=== PATIENT | male | born 1960 | race Caucasian/White ===

== ENCOUNTER 2020-07-17 | Outpatient (REF) | payer OTHER, MEDICAID, SELFPAY ==
[2020-07-18 13:46] LABS: Creatinine Urine 178.68 mg/dL; Microalbum/Creatinine Ratio Ur 16.7 ug/mg cr
== END 2020-07-17 00:01 | disposition home or self-care (01) ==
LOC: HO.LNP
PROVIDERS: Visit Provider Family Medicine
DX: I10 Essential (primary) hypertension (principal)
CPT/HCPCS: 82043

== ENCOUNTER 2020-07-23 10:10 | Outpatient (REF) | payer OTHER, SELFPAY ==
[2020-07-23 14:05] LABS: Alanine Aminotransferase 21 U/L (0-40); Albumin Level 4.5 g/dL (3.5-5.0); Alkaline Phosphatase 67 U/L (39-117); Anion Gap 14 (12-20); Aspartate Amino Transferase 18 U/L (5-37); Bilirubin Total 0.4 mg/dL (0.0-1.0); Blood Urea Nitrogen 26 mg/dL (9-16); Calcium 9.8 mg/dL (8.4-10.2); Carbon Dioxide 27 mmol/L (22-29); Chloride 104 mmol/L (96-108); Cholesterol 140 mg/dL; Estimated Glomerular Filt Rate > 60; Glucose Fasting 85 mg/dL (60-99); HDL Cholesterol 44 mg/dL; LDL Cholesterol Calculated 71 mg/dl; Potassium 5.3 mmol/l (3.3-5.1); Sodium 140 mmol/L (135-145); Total Protein 7.4 g/dL (6.5-8.0); Triglycerides 125 mg/dL
== END 2020-07-23 10:11 | disposition home or self-care (01) ==
LOC: HO.WFDLDS 10:10
PROVIDERS: Visit Provider Family Medicine
DX: E11.69 Type 2 diabetes mellitus with other specified complication (principal); E66.9 Obesity, unspecified; I10 Essential (primary) hypertension; Z00.00 Encounter for general adult medical examination without abnormal findings; E78.5 Hyperlipidemia, unspecified
CPT/HCPCS: 80053; 80061

== ENCOUNTER 2021-05-03 11:13 | Outpatient (REF) | payer OTHER, SELFPAY ==
[2021-05-03 14:21] LABS: Alanine Aminotransferase 17 U/L (0-40); Albumin Level 4.2 g/dL (3.5-5.0); Alkaline Phosphatase 64 U/L (39-117); Anion Gap 12 (12-20); Aspartate Amino Transferase 25 U/L (5-37); Bilirubin Total 0.4 mg/dL (0.0-1.0); Blood Urea Nitrogen 31 mg/dL (9-16); Calcium 8.8 mg/dL (8.4-10.2); Carbon Dioxide 25 mmol/L (22-29); Chloride 103 mmol/L (96-108); Estimated Glomerular Filt Rate > 60; Glucose Fasting 107 mg/dL (60-99); Sodium 136 mmol/L (135-145); Total Protein 6.9 g/dL (6.5-8.0)
[2021-05-03 14:25] LABS: Glucose Urine UA NEG (NEG); Leukocyte Esterase Urine NEG (NEG); Nitrite Urine NEG (NEG); PH 5.5 (5.0-8.0); Specific Gravity - Urine >= 1.030 (1.005-1.025); Urine Blood TRACE (NEG); Urine Ketones NEG (NEG); Urine Protein TRACE MG/DL (NEG-TRACE)
[2021-05-03 14:29] LABS: Appearance Urine CLEAR; Color Urine YELLOW
[2021-05-03 14:39] LABS: Mucus Urine TRACE /LPF; RBC Urine 0-2 /HPF (0); Squamous Epithelial Cell Urine TRACE /LPF; WBC Urine 0-2 /HPF (0-4)
[2021-05-03 15:03] LABS: Creatinine Urine 105.33 mg/dL; Microalbum/Creatinine Ratio Ur 107.2 ug/mg cr
== END 2021-05-03 11:14 | disposition home or self-care (01) ==
LOC: HO.WFDLDS 11:13
PROVIDERS: Visit Provider Family Medicine
DX: Z00.00 Encounter for general adult medical examination without abnormal findings (principal); E11.9 Type 2 diabetes mellitus without complications; I10 Essential (primary) hypertension
CPT/HCPCS: 36415; 80053; 81001; 81003; 82043

== ENCOUNTER → 2021-10-07 08:29 | Outpatient (BNVA) | payer OTHER, SELFPAY | PROVIDERS: PCP Family Medicine; Visit Provider Nurse Practitioner Family | DX: M47.812 Spondylosis without myelopathy or radiculopathy, cervical region (principal); M25.561 Pain in right knee; M25.562 Pain in left knee; M25.50 Pain in unspecified joint; G89.29 Other chronic pain | CPT/HCPCS: 99202 ==

== ENCOUNTER 2022-01-10 11:28 | Outpatient (REF) | payer OTHER, SELFPAY ==
[2022-01-10 13:42] LABS: Uric Acid 6.7 mg/dL (3.4-7.0)
[2022-01-10 14:15] LABS: Erythrocyte Sedimentation Rate 30 MM/HR (0-15)
[2022-01-13 12:40] LABS: CRP High Sensitivity 7.6 mg/L
== END 2022-01-10 11:29 | disposition home or self-care (01) ==
LOC: HO.WFDLDS 11:28
PROVIDERS: Visit Provider Hospitalist
DX: M65.319 Trigger thumb, unspecified thumb (principal); M25.541 Pain in joints of right hand; M65.841 Other synovitis and tenosynovitis, right hand
CPT/HCPCS: 36415; 84550; 85652; 86141

== ENCOUNTER → 2022-01-21 13:26 | Outpatient (BNVA) | payer OTHER, SELFPAY | PROVIDERS: PCP Family Medicine; Visit Provider Orthopaedic Surgery | DX: M65.311 Trigger thumb, right thumb (principal); M65.331 Trigger finger, right middle finger; M65.332 Trigger finger, left middle finger; E11.9 Type 2 diabetes mellitus without complications | CPT/HCPCS: 99202 ==

== ENCOUNTER 2022-02-06 12:02 | Outpatient (REF) | payer OTHER, SELFPAY ==
[2022-02-06 13:32] LABS: MANUAL DIFF FLAG NO
[2022-02-06 13:43] LABS: Basophils Percent Auto 0.3 % (0-2); Eosinophils Absolute Auto 0.2 X10*3/uL (0.0-0.4); Eosinophils Percent Auto 1.7 % (0-4); Hematocrit 37.8 % (42.0-52.0); Hemoglobin 12.9 g/dl (14.0-18.0); Imm Gran Abs Auto 0.05 X10*3/uL (0.00-0.03); Imm Gran Pct Auto 0.5 % (0.0-0.4); Lymphocytes Absolute Auto 2.9 X10*3/uL (1.2-4.9); Lymphocytes Percent Auto 26.8 % (20-40); Mean Corpuscular HGB Conc 34.1 g/dl (31.0-36.0); Mean Corpuscular Hemoglobin 28.9 pg (27.0-33.0); Mean Corpuscular Volume 84.6 fL (80.0-98.0); Mean Platelet Volume 9.5 fL (9.4-12.4); Monocytes Absolute Auto 0.8 X10*3/uL (0.1-1.2); Monocytes Percent Auto 7.3 % (2-11); Neutrophils Absolute Auto 6.7 x10*3/uL (2.0-8.3); Neutrophils Percent Auto 63.4 % (45-73); Platelet Count 262 X10*3/uL (160-400); Red Blood Count 4.47 X10*6/uL (4.60-5.80); White Blood Count 10.6 X10*3/uL (4.8-10.8)
[2022-02-06 13:58] LABS: Alanine Aminotransferase 20 U/L (0-40); Albumin Level 4.4 g/dL (3.5-5.0); Alkaline Phosphatase 89 U/L (39-117); Anion Gap 15 (12-20); Aspartate Amino Transferase 18 U/L (5-37); Bilirubin Total 0.7 mg/dL (0.0-1.0); Blood Urea Nitrogen 8 mg/dL (9-16); Calcium 9.7 mg/dL (8.4-10.2); Carbon Dioxide 27 mmol/L (22-29); Chloride 102 mmol/L (96-108); Estimated Glomerular Filt Rate > 60; Glucose Fasting 128 mg/dL (60-99); Rheumatoid Factor < 15.0 IU/mL (<15.0); Sodium 139 mmol/L (135-145); Total Protein 7.2 g/dL (6.5-8.0)
[2022-02-08 14:32] LABS: CRP High Sensitivity 5.1 mg/L
[2022-02-12 00:27] LABS: Cyclic Citrullinated Peptide <16 UNITS
== END 2022-02-06 12:03 | disposition home or self-care (01) ==
LOC: HO.WFDLDS 12:02
PROVIDERS: Visit Provider Hospitalist
DX: Z00.00 Encounter for general adult medical examination without abnormal findings (principal); M79.641 Pain in right hand; M79.642 Pain in left hand; R70.0 Elevated erythrocyte sedimentation rate; R19.7 Diarrhea, unspecified; M25.50 Pain in unspecified joint
CPT/HCPCS: 36415; 80053; 85025; 86141; 86200; 86431

== ENCOUNTER → 2022-04-14 09:59 | Outpatient (BNVA) | payer OTHER, SELFPAY | PROVIDERS: PCP Hospitalist; Visit Provider Student in an Organized Health Care Education/Training Program | DX: M19.011 Primary osteoarthritis, right shoulder (principal); M19.012 Primary osteoarthritis, left shoulder; M65.331 Trigger finger, right middle finger; M17.0 Bilateral primary osteoarthritis of knee | CPT/HCPCS: 99202 ==

== ENCOUNTER 2023-04-17 09:42 | Outpatient (AMB) | payer OTHER, SELFPAY ==
[2023-04-17 09:53] VITALS: BP 124/78; PULSE 91; RESP 12; TEMP 36.3; O2SAT 99; BMI 39.7
--- NOTE | 2023-04-17 09:53 | MHC.PC.OV ---
Vital Signs 04/17/23 09:53 Height 5 ft 10 in Weight 276 lb 8 oz BMI 39.7 BP 124/78 Blood Pressure Location Rt brachial Position Sitting Respiration 12 Pulse 91 Pulse Source Pulse Oximeter Temp 97.4 F Temp Source Temporal Artery Scan Pulse Oximetry (%) 99 Oxygen Delivery Method Room Air Intake Visit Reasons: 3 month f/u Blood sugar Supervisor Inventory Merchandising Required: No Accompanied by: Self / Same As Patient Allergies morphine Allergy (Verified 04/17/23 10:27) Itchiness all over body Medication List - Last Reconciled 04/17/23 by Pawel Velez CNP blood sugar diagnostic (FreeStyle Lite Strips) DX: E11.9, test blood sugar 2 times a day, 90 days blood-glucose meter (FreeStyle Lite Meter kit) DX: E11.9, test blood sugar 2 times a day, duration 999 days celecoxib 200 mg PO DAILY cyclobenzaprine 10 mg PO BID PRN 3 months gabapentin 400 mg PO TID 90 days glipizide ER 10 mg PO BID lancets (FreeStyle Lancets) As directed lisinopril-hydrochlorothiazide 20-12.5 mg 1 tab PO DAILY metformin ER 500 mg PO BID 90 days metronidazole 0.75% 1 appl topical DAILY omeprazole 20 mg PO DAILY 3 months oxycodone 5 mg PO Q6H PRN 28 days Tobacco use date assessed: 11/04/22 Dental Screening Dental Screen Date: 04/17/23 Did you have a dental visit in the last 12 months?: No Did you have a dental problem in the last 6 months where you did not have access to dental care?: No Was dental information given to patient?: Yes HPI HPI Comments History of Present Illness Details 62-year-old male presents for diabetes follow-up. He is on glipizide and metformin which he notes he has been taking as prescribed. Previous A1c in October was 7.0%. He notes his last eye exam was 3-4 years ago. He is not currently being followed by ophthalmology. 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 He notes his list foot exam was several years ago. He declines podiatry referral. [facility] Medical History History of right shoulder fracture Osteoarthritis of knees, bilateral Osteoarthritis of shoulders, bilateral Surgical History History of artificial eye lens History of heart artery stent History of right knee surgery Hx of shoulder surgery Family History Father No problems noted. Mother Arthritis Brother Arthritis Social History Household Members: Friend(s) Housing: Apartment Alcohol intake: former Year quit: 2011 Patient Tobacco Use Status: Never used Tobacco e-Cigarette/Vaping Use: Never Used Second Hand Smoke Exposure: No service: No Current occupational status: disabled Current occupational exposures/hazards: No Cognitive needs: No Hearing needs: No Vision needs: Yes Questionnaire Thrive Questionnaire Date Thrive assessed: 11/04/22 CHRISTOPH-7 AMB Questionnaire CHRISTOPH-7 Date CHRISTOPH - 7 assessed: 11/04/22 Source: Developed by Drs. Juan Gonzales, Marcie Botello, Julio César Dunbar and colleagues, with an educational cristin from [employer]. Review of Systems Const Details: Const Denies chills, Denies fatigue, Denies fever(s), Denies headache(s) and Denies weakness ENT Denies dizziness and Denies headache(s) Card Denies chest pain, Denies lightheadedness, Denies dyspnea and Denies other (Palpitations) Resp Denies cough, Denies dyspnea, Denies wheezing and Denies other ( shortness of breath) GI Denies abdominal pain, Denies melena, Denies hematochezia, Denies change in bowel habits, Denies dyspepsia and Denies nausea Denies hematuria and Denies dysuria Musc Denies abnormal gait, Denies myalgias, Denies arthralgias, Denies numbness and Denies tingling Skin/Breast Denies rash, Denies unusual bruising and Denies wounds Neuro Denies abnormal gait, Denies dizziness, Denies headache(s), Denies memory loss, Denies numbness, Denies Sensory deficit (Neuro), Denies tingling and Denies weakness Psych Denies anxiety, Denies depression, Denies memory loss Endo Denies cold intolerance, Denies fatigue, Denies heat intolerance, Denies polydipsia and Denies polyuria Aller/Immun Denies wheezing Physical exam (Primary Care) Vital Signs: Last Vital Signs Temp 97.4 F 04/17/23 09:53 Pulse 91 04/17/23 09:53 Resp 12 04/17/23 09:53 BP 124/78 04/17/23 09:53 Pulse Ox 99 04/17/23 09:53 Oxygen Delivery Method Room Air 04/17/23 09:53 BMI result Body Mass Index 39.7 Tobacco/Smoking Status: Tobacco use Status Tobacco use date assessed 11/04/22 04/17/23 10:05 Patient Tobacco Use Status Never used Tobacco 04/17/23 10:05 e-Cigarette/Vaping Use Never Used 04/17/23 10:05 Thrive Assessment: Date of Thrive Assessment Date Thrive assessed 11/04/22 04/17/23 10:05 Const Other: General: no acute distress and well developed Nutritional Appearance: well nourished Orientation/consciousness: patient oriented x3 HENMT Head: Yes normocephalic and Yes atraumatic Eyes General: appearance normal, both eyes and all related structures Pupils: Equal, round and reactive pupils present EOM: EOMs intact bilaterally Resp Effort & Inspection: normal respiratory effort Auscultation: clear to auscultation bilaterally Cardio Rate: regular rate Rhythm: regular rhythm Heart sounds: S1 normal heart sound present, S2 normal heart sound present, no gallops, no murmurs and no rubs GI Palpation (GI): No Abdominal aortic bruit present, Soft to palpation, nontender, No hepatosplenomegaly present and No Rebound tenderness present Auscultation: normal bowel sounds General: Yes no CVA tenderness Back/Spine/Pelvis Back: no CVA tenderness Cervical Spine: cervical ROM normal and No Cervical spine tenderness Thoracic/Lumbar Spine: thoraco-lumbar ROM normal, No pain with thoraco-lumbar ROM, No thoracic spinal tenderness and No lumbar spinal tenderness Extrem General: Yes normal to inspection, No edema and No calf tenderness Skin General: warm and dry. Normal skin color. Normal skin turgor Lesions: no lesions Rashes: no rashes Trauma: no lacerations or abrasions Wounds: no wounds Nails: normal Neuro General: patient oriented x3, gait normal and no focal neuro deficit Cranial nerves: Yes Equal, round and reactive pupils present Cognition (Neuro): normal cognition Gait exam (Neuro): Normal gait present Sensory Exam: No Sensory deficit (Neuro) Psych Appearance: grossly normal Affect: normal affect Attitude: cooperative Thought process: Normal thought process present Results AMB Hemoglobin A1c AMB Hemoglobin A1c 5.8 % Last Edit by Danielle Haynes MA on 04/17/23 10:11 Results Reviewed Results Reviewed: Laboratory Last Values Hgb A1c (Clinic) 5.8 % (4.0-6.0) 04/17/23 10:10 Assessment and Plan Assessment & Plan (1) Type 2 diabetes mellitus without complications: Code(s): E11.9 - Type 2 diabetes mellitus without complications Plan: A1c today is 5.8%, within goal of less than 7.0% Previous A1c was 7.0% Continue to take metformin and glipizide as prescribed ADA diet and routine exercise encouraged Microalbumin/creatinine ratio ordered Referred to Ophthalmology for diabetic retinal exam Declines podiatry referral Follow-up with PCP in 3 months or return sooner with concerns or symptoms Verbalized understanding and agreed with treatment plan (2) Essential hypertension: Code(s): I10 - Essential (primary) hypertension Plan: Blood pressures control, 124/78, within goal of less than 130/80 Continue to take lisinopril-hydrochlorothiazide as prescribed Low-sodium diet encouraged Follow-up with PCP in 3 months Verbalized understanding and agreed with treatment plan. (3) Hyperlipidemia: Code(s): E78.5 - Hyperlipidemia, unspecified Plan: Previous LDL was 71 on 07/30/2022 LP ordered. Advised to fast for his 10-12 hours and get blood work done before next visit Routine exercise encouraged Advised to limit foods high in saturated fat and avoid foods high trans fat Follow-up with PCP in 3 months Verbalized understanding and agreed with treatment plan. Orders: Orders Lipid Panel Today E78.5 - Hyperlipidemia, unspecified Microalbumin, Random (w Creat) Today E11.9 - Type 2 diabetes mellitus without complications Referrals Ophthalmology Referral E11.9 - Type 2 diabetes mellitus without complications Coding Level of Care Code Est Pt Level 3 (98752) Diagnoses Type 2 diabetes mellitus without complications E11.9 Essential hypertension I10 Hyperlipidemia E78.5 Time Spent (min) 25
== END 2023-04-17 10:41 | disposition home or self-care (01) ==
PROVIDERS: PCP Hospitalist; Visit Provider Nurse Practitioner Family
DX: E11.9 Type 2 diabetes mellitus without complications (principal); I10 Essential (primary) hypertension; E78.5 Hyperlipidemia, unspecified
CPT/HCPCS: 99213

== ENCOUNTER 2023-07-31 10:14 | Outpatient (REF) | payer OTHER, SELFPAY ==
[2023-07-31 12:28] LABS: Cholesterol 226 mg/dL (<200); HDL Cholesterol 37 mg/dL (>40); LDL Cholesterol Calculated 154 mg/dL (<100); Microalbum/Creatinine Ratio Ur 14.9 ug/mg cr (<30); Triglycerides 175 mg/dL (<150)
== END 2023-07-31 10:15 | disposition home or self-care (01) ==
LOC: HO.WFDLDS 10:14
PROVIDERS: Visit Provider Nurse Practitioner Family
DX: E78.5 Hyperlipidemia, unspecified (principal); E11.9 Type 2 diabetes mellitus without complications
CPT/HCPCS: 36415; 80061; 82043; 82570

== ENCOUNTER 2023-09-30 09:34 | Outpatient (AMB) | payer OTHER, SELFPAY ==
--- NOTE | 2023-09-30 09:35 | A.OFFPC_ITS ---
Vital Signs 09/30/23 09:36 Height 5 ft 10 in Weight 263 lb 4 oz BMI 37.8 BP 134/76 Blood Pressure Location Rt brachial Position Sitting Respiration 13 Pulse 60 Pulse Source Pulse Oximeter Temp 97.6 F Temp Source Temporal Artery Scan Pulse Oximetry (%) 99 Oxygen Delivery Method Room Air Intake Visit Reasons: Transfer of care SV - HTN and DM Intake Note: Patient states that he fell 3 weeks ago and hurt his left shoulder and would like a xray ordered if possible.1 Family Development Extension Specialist Required: No Accompanied by: Self / Same As Patient Allergies morphine Allergy (Verified 09/30/23 10:14) Itchiness all over body Medication List - Last Reconciled 09/30/23 by CRISTINE HernándezP- blood sugar diagnostic (FreeStyle Lite Strips) DX: E11.9, test blood sugar 2 times a day, 90 days blood-glucose meter (FreeStyle Lite Meter kit) DX: E11.9, test blood sugar 2 times a day, duration 999 days celecoxib 200 mg PO DAILY cyclobenzaprine 10 mg PO BID PRN 3 months gabapentin 400 mg PO TID 90 days glipizide ER 10 mg PO BID lancets (FreeStyle Lancets) As directed lisinopril-hydrochlorothiazide 20-12.5 mg 1 tab PO DAILY metformin ER 500 mg PO BID 90 days metronidazole 0.75% 1 appl topical DAILY omeprazole 20 mg PO DAILY 3 months oxycodone 5 mg PO Q6H PRN 28 days sitagliptin phos-metformin 50-1,000 mg ER (Janumet XR) 1 tab PO QPM 90 days Tobacco use date assessed: 09/30/23 Fall risk assessment: 1 Fall in past year Last assessed Fall Risk: 09/30/23 Dental Screening Dental Screen Date: 09/30/23 Did you have a dental visit in the last 12 months?: No Did you have a dental problem in the last 6 months where you did not have access to dental care?: No Was dental information given to patient?: Patient declined HPI HPI Comments History of Present Illness0 Details 63-year-old male with hyperlipidemia, hy pertension, GERD, type 2 diabetes, PVD, coronary artery disease with DANIEL x1 chronic joint pain, rosacea, obesity Status post left lower extremity phlebectomy Specialist: Orthopedics at [facility] rheumatology [facility] pain management Vascular Dr Maik Hooks Health maintenance: Colonoscopy diabetic eye exam refer to Dr. De Jesus -- declined for now. HGB A1c 6.1% today Diabetic foot exam: Declines podiatry referral Here today w/ c/o pain after a fall 3 weeks ago at home landed on left side causing pain in L shoulder problems w/ L shoulder in the past, known torn labrum, no previous surgeries. pain is acute on chronic. to tx the pain at home, applying ice and heat w/o great relief Needs L shoulder replacement but holding off given his wt. Has had intentional wt loss. [facility] Medical History Osteoarthritis of knees, bilateral Osteoarthritis of shoulders, bilateral History of right shoulder fracture Surgical History Hx of shoulder surgery History of heart artery stent History of artificial eye lens History of right knee surgery Family History Father No problems noted. Mother Arthritis Brother Arthritis Social History Household Members: Friend(s) Housing: Apartment Alcohol intake: former Year quit: 2011 Patient Tobacco Use Status: Never used Tobacco e-Cigarette/Vaping Use: Never Used Second Hand Smoke Exposure: No service: No Current occupational status: disabled Current occupational exposures/hazards: No Cognitive needs: No Hearing needs: No Vision needs: No Questionnaire PHQ-9 Over the last 2 weeks, how often have you been bothered by any of the following problems? 1. Little interest or pleasure in doing things: not at all 2. Feeling down, depressed, or hopeless: not at all 3. Trouble falling or staying asleep, or sleeping too much: nearly every day 4. Feeling tired or having little energy: nearly every day 5. Poor appetite or overeating: not at all 6. Feeling bad about yourself - or that you are a failure or have let yourself or your family down: not at all 7. Trouble concentrating on things, such as reading the newspaper or watching television: not at all 8. Moving or speaking so slowly that other people could have noticed. Or the opposite - being so fidgety or restless that you have been moving around a lot more than usual: not at all 9. Thoughts that you would be better off or of hurting yourself in some way: not at all Total score: 6 Depression Screening Interpretation: Positive Depression Screening Done: Yes [id number] - PHQ-9 Billing: Yes Source: Developed by Drs. Juan Gonzales, Marcie Botello, Julio César Dunbar and colleagues, with an educational cristin from [employer]. Thrive Questionnaire Date Thrive assessed: 09/30/23 I am a: Patient What is your living situation today?: I have a steady place to live Within the past 12 months, did the food you bought not last and you didn't have the money to get more?: Sometimes True Within the past 12 months, did you worry whether your food would run out before you got money to buy more?: Sometimes True Do you have trouble paying for medicines?: No Do you have trouble getting transportation to medical appointments?: No Do you have trouble paying your heating and electricity bill?: No Do you have trouble taking care of your child, family member or friend?: Yes Do you have trouble with day-to-day activities such as bathing, preparing meals, shopping, managing finances, etc.?: Yes Are you currently unemployed and looking for a job?: No Are you interested in more education?: No Please select the resources that you would like help with: None Currently or been in a relationship where the following occur: no concerns reported THRIVE Score: 2 AUDIT C Alcohol Use Questionnaire (AUDIT-C) 1. How often do you have a drink containing alcohol?: Never 3. How often do you have six or more drinks on one occasion?: Never Total Score: 0 CHRISTOPH-7 AMB Questionnaire CHRISTOPH-7 Date CHRISTOPH - 7 assessed: 09/30/23 Feeling nervous, anxious, or on edge: 0 = Not at all Not being able to stop or control worryin = Not at all Worrying too much about different things: 0 = Not at all Trouble relaxin = Not at all Being so restless that it is hard to sit still: 0 = Not at all Becoming easily annoyed or irritable: 0 = Not at all Feeling afraid as if something awful might happen: 0 = Not at all Total CHRISTOPH-7 score (0-4 normal; 5-9 mild; 10-14 moderate; 15-21 severe): 0 Source: Developed by Drs. Juan Gonzales, Marcie Botello, Julio César Dunbar and colleagues, with an educational cristin from [employer]. CHRISTOPH-7 Assessment Billing CHRISTOPH-7 Assessment Tool: CHRISTOPH-7 Assessment 47261 Review of Systems Const All systems reviewed & are unremarkable except as noted in HPI and below Physical exam (Primary Care) Vital Signs: Last Vital Signs Temp 97.6 F 09/30/23 09:36 Pulse 60 09/30/23 09:36 Resp 13 09/30/23 09:36 BP 134/76 09/30/23 09:36 Pulse Ox 99 09/30/23 09:36 Oxygen Delivery Method Room Air 09/30/23 09:36 BMI result Body Mass Index 37.8 Tobacco/Smoking Status: Tobacco use Status Tobacco use date assessed 09/30/23 09/30/23 09:48 Patient Tobacco Use Status Never used Tobacco 09/30/23 09:48 e-Cigarette/Vaping Use Never Used 09/30/23 09:48 PHQ-9: PHQ-9 Score PHQ-9: Total score 6 09/30/23 10:10 Depression Screening Interpretation: Positive Thrive Assessment: Date of Thrive Assessment Date Thrive assessed 09/30/23 09/30/23 09:48 Currently or been in a relationship where the following occur: no concerns reported Const Other: Awake alert oriented Mucous membranes moist Lung sounds clear to auscultation bilat Regular rate and rhythm, 2/6 systolic murmur left sternal border (patient reports this is chronic and baseline) Left shoulder with restricted passive and active range of motion. Hand grasps is weak on the left side but he reports this is his baseline and not new since the injury. Positive radial pulse, normal cap refill. Pain over anterior and posterior shoulder with palpation. Does appear lower than the right shoulder. No vascular compromise Results AMB Hemoglobin A1c AMB Hemoglobin A1c 6.1 % Last Edit by Danielle Haynes MA on 09/30/23 09:59 Results Reviewed Results Reviewed: Laboratory Last Values Hgb A1c (Clinic) 6.1 % (4.0-6.0) H 09/30/23 09:57 Assessment and Plan Assessment & Plan (1) DM2 (diabetes mellitus, type 2): Comment: HGB A1c 6.1% today. He is currently prescribed glipizide ER 10 mg p.o. b.i.d.. He reports that he is only taking this some of the time as it causes profound hypoglycemia. He is also taking metformin 500 mg ER p.o. b.i.d.. He reports he can not tolerate any higher doses given GI upset. I have sent in a new prescription for Liz. If his insurance covers this at a co-pay that is forward will to him I have advised him to stop taking the glipizide as well as the metformin and start taking this. If the insurance gives him a high co-pay I have asked that he let me know so that I can come up with an alternative. Has declined a referral for diabetic eye exam at this time. He is declined referral to Podiatry. His lipid profile from 07/31/2023 shows triglycerides elevated at 175, total cholesterol 226, LDL 154, HDL 37 His urine microalbumin on the same date is 27 milligram/liter, urine creatinine 180.4 mg/dL, with a microalbumin creatinine ratio of 14.9 he is not maintained on a statin, he is on an MARIA ANTONIA inhibitor lisinopril 20 mg, not maintained on a baby aspirin. These are all things that we will need to discuss at the future visit. I will have him repeat his labs before the next visit which should be scheduled in the next 3-4 months. He has not very eager to participate in changes and we have already me in 1 change in his diabetic regimen and that is why I am holding off on making any other changes such as starting a statin or starting a baby aspirin. Code(s): E11.9 - Type 2 diabetes mellitus without complications Qualifiers: Diabetes mellitus petroleum terminal plant operator insulin use: without fci use Diabetes mellitus complication status: with circulatory complication Diabetes mellitus complication detail: with peripheral angiopathy without gangrene Qualified Code(s): E11.51 - Type 2 diabetes mellitus with diabetic peripheral angiopathy without gangrene (2) Left shoulder pain: Code(s): M25.512 - Pain in left shoulder Qualifiers: Chronicity: acute Qualified Code(s): M25.512 - Pain in left shoulder Plan: Will check x-ray of left shoulder today. He reports he will have this done at [facility]. I have referred him back to [facility] as he has been cared for there in the past. The x-ray is done to rule out subluxation. I doubt there is a fracture. Be that as it may he needs to follow up with doing the Orthopedics for further management of this. (3) Fall: Code(s): W19.XXXA - Unspecified fall, initial encounter Qualifiers: Encounter type: initial encounter Qualified Code(s): W19.XXXA - Unspecified fall, initial encounter (4) Hyperlipidemia: Code(s): E78.5 - Hyperlipidemia, unspecified Qualifiers: Hyperlipidemia type: mixed hyperlipidemia Qualified Code(s): E78.2 - Mixed hyperlipidemia (5) Essential hypertension: Code(s): I10 - Essential (primary) hypertension Plan This note is constructed using voice recognition software. While every effort has been made to ensure accuracy in basin operator, still errors may have been included Sometimes, these errors may affect the content or meaning of the given sentence . Total time spent caring for the patient today was 55 minutes. This includes time spent before the visit reviewing the chart, time spent during the visit, and time spent after the visit on documentation Orders: Orders XR shoulder LT min 2V Today M25.512 - Pain in left shoulder, W19.XXXA - Unspecified fall, initial encounter AMB Hemoglobin A1c Today E11.9 - Type 2 diabetes mellitus without complications Referrals Orthopedics Referral M25.512 - Pain in left shoulder, W19.XXXA - Unspecified fall, initial encounter Medications: New sitagliptin phos-metformin 50-1,000 mg ER (Janumet XR) 1 tab PO QPM 90 days 90 tabs 0RF Coding Level of Care Code Est Pt Level 5 (55697) Diagnoses Type 2 diabetes mellitus with diabetic peripheral angiopathy without gangrene, without long-term current use of insulin E11.51 Diabetes mellitus fci insulin use: without fci use Diabetes mellitus complication status: with circulatory complication Diabetes mellitus complication detail: with peripheral angiopathy without gangrene Acute pain of left shoulder M25.512 Chronicity: acute Fall, initial encounter W19.XXXA Encounter type: initial encounter Mixed hyperlipidemia E78.2 Hyperlipidemia type: mixed hyperlipidemia Essential hypertension I10 Additional Codes CHRISTOPH-7 Assessment Billing - CHRISTOPH-7 Assessment Tool: CHRISTOPH-7 Assessment [id number] ([id number])
[2023-09-30 09:36] VITALS: BP 134/76; PULSE 60; RESP 13; TEMP 36.4; O2SAT 99; BMI 37.8
== END 2023-09-30 10:34 | disposition home or self-care (01) ==
PROVIDERS: PCP Nurse Practitioner Family; Visit Provider Nurse Practitioner Family
DX: E11.51 Type 2 diabetes mellitus with diabetic peripheral angiopathy without gangrene (principal); M25.512 Pain in left shoulder; W19.XXXA Unspecified fall, initial encounter; E78.2 Mixed hyperlipidemia; I10 Essential (primary) hypertension
CPT/HCPCS: 83036; 99215

== ENCOUNTER 2024-01-01 11:44 | Outpatient (AMB) | payer OTHER, SELFPAY ==
--- NOTE | 2024-01-01 11:52 | MHC.PC.OV ---
Vital Signs 01/01/24 11:54 Height 5 ft 10 in Weight 262 lb 4 oz BMI 37.6 BP 128/74 Blood Pressure Location Rt brachial Position Sitting Respiration 14 Pulse 90 Pulse Source Pulse Oximeter Temp 98.1 F Temp Source Oral Pulse Oximetry (%) 97 Oxygen Delivery Method Room Air Intake Visit Reasons: chronic fu Intake Note: follow up. Stopped Janumet due to stomach pain, bloating, and gas. Patient went back to taking Metformin and Glipizide, and would like refills. Has been trying to get a refill on cyclobenzaprine for almost a week. Allergies morphine Allergy (Verified 01/01/24 12:13) Itchiness all over body Medication List - Last Reconciled 01/01/24 by RUI Hernández- blood sugar diagnostic (FreeStyle Lite Strips) DX: E11.9, test blood sugar 2 times a day, 90 days blood-glucose meter (FreeStyle Lite Meter kit) DX: E11.9, test blood sugar 2 times a day, duration 999 days celecoxib 200 mg PO DAILY cyclobenzaprine 10 mg PO BID PRN 3 months gabapentin 400 mg PO TID glipizide ER 10 mg PO ONCE lancets (FreeStyle Lancets) As directed lisinopril-hydrochlorothiazide 20-12.5 mg 1 tab PO DAILY metformin ER 500 mg PO BID 90 days metronidazole 0.75% 1 appl topical DAILY omeprazole 20 mg PO DAILY 3 months oxycodone 5 mg PO Q6H PRN 28 days Tobacco use date assessed: 01/01/24 Dental Screening Dental Screen Date: 01/01/24 Did you have a dental visit in the last 12 months?: No Did you have a dental problem in the last 6 months where you did not have access to dental care?: No Was dental information given to patient?: No (declined) HPI HPI Comments History of Present Illness Details 63-year-old male with hyperlipidemia, hypertension, GERD, type 2 diabetes, PVD, coronary artery disease with DANIEL x1 chronic joint pain, rosacea, obesity Status post left lower extremity phlebectomy Specialist: [facility] rheumatology [facility] pain management Vascular Dr Maik Hooks Health maintenance: Colonoscopy diabetic eye exam refer to Dr. De Jesus >> declined HGB A1c 6.3% today Diabetic foot exam: Declines podiatry referral Here today to follow up on chronic diseases. When I entered the room he was very irritated. I started to inquire about his chronic diseases such as diabetes. He tells me he discontinued the medication that I gave him as it was causing GI upset. Self treating with Glipizide ER 10 PRN elevated blood sugars could not tolerate combo med does not want to increase metformin as causes GI upset When asked about a diabetic eye exam he states that he does not want to do this and he canceled the appointment. I started to ask him about getting labs to follow up on his cholesterol liver and kidney functions and he told me that he was done. He then further explained that he just needs refills on his Percocet in his muscle relaxer. That he was on a pain contract with his previous PCP and he does not understand why no one else we will refill this. cancelled appt w/ [facility] becuase it was scheduled for cortisone and not surgery and he wants surgery. I asked him about a new referral to a different orthopedic group and he adamantly refused stating he only needs and wants narcotics. I asked him about [facility]'s pain management group and he said that he already saw them and they offered to do a nerve ablation and he is not comfortable with that. He can not understand why no one will refill his narcotics that he so desperately needs. I did advise him today that his pain contract was with a provider who is no longer with this practice. It was in 2021. And at this time there is no clinical indication for him to be on chronic opiates. I told him that if at any time he changes his mind and wishes to see me for chronic disease management I am happy to see him. However he refuses to do any labs or health maintenance at this time. Be that as it may he can follow up on a p.r.n. basis only. He was made aware that I will not prescribe narcotics as there has no clinical indication. He was very upset by this. However left the office without incident. [facility] Medical History Osteoarthritis of knees, bilateral Osteoarthritis of shoulders, bilateral History of right shoulder fracture Surgical History Hx of shoulder surgery History of heart artery stent History of artificial eye lens History of right knee surgery Family History Father No problems noted. Mother Arthritis Brother Arthritis Social History Household Members: Friend(s) Housing: Apartment Alcohol intake: former Year quit: 2011 Patient Tobacco Use Status: Never used Tobacco e-Cigarette/Vaping Use: Never Used Second Hand Smoke Exposure: No service: No Current occupational status: disabled Current occupational exposures/hazards: No Cognitive needs: No Hearing needs: No Vision needs: No Questionnaire Thrive Questionnaire Date Thrive assessed: 09/30/23 AUDIT C Alcohol Use Questionnaire (AUDIT-C) 1. How often do you have a drink containing alcohol?: Never 3. How often do you have six or more drinks on one occasion?: Never Total Score: 0 CHRISTOPH-7 AMB Questionnaire CHRISTOPH-7 Date CHRISTOPH - 7 assessed: 09/30/23 Source: Developed by Drs. Juan Gonzales, Marcie Botello, Julio César Dunbar and colleagues, with an educational cristin from [email or web address]. Review of Systems Const All systems reviewed & are unremarkable except as noted in HPI and below Physical exam (Primary Care) Vital Signs: Last Vital Signs Temp 98.1 F 01/01/24 11:54 Pulse 90 01/01/24 11:54 Resp 14 01/01/24 11:54 BP 128/74 01/01/24 11:54 Pulse Ox 97 01/01/24 11:54 Oxygen Delivery Method Room Air 01/01/24 11:54 BMI result Body Mass Index 37.6 Tobacco/Smoking Status: Tobacco use Status Tobacco use date assessed 01/01/24 01/01/24 11:59 Patient Tobacco Use Status Never used Tobacco 01/01/24 11:59 e-Cigarette/Vaping Use Never Used 01/01/24 11:59 Thrive Assessment: Date of Thrive Assessment Date Thrive assessed 09/30/23 01/01/24 11:59 Const Other: awake alert irritated, short responses, poor eye contact. Results AMB Hemoglobin A1c AMB Hemoglobin A1c 6.3 % Last Edit by Rhonda Robertson CMA on 01/01/24 12:11 Assessment and Plan Assessment & Plan (1) DM2 (diabetes mellitus, type 2): Comment: HGB A1c 6.3% today. He chooses to medicate himself with glipizide 10 mg p.r.n. and metformin 500 ER p.o. b.i.d.. He refuses any interventions from myself medically. Code(s): E11.9 - Type 2 diabetes mellitus without complications Qualifiers: Diabetes mellitus complication detail: with peripheral angiopathy without gangrene Diabetes mellitus complication status: with circulatory complication Diabetes mellitus care home insulin use: without care home use Qualified Code(s): E11.51 - Type 2 diabetes mellitus with diabetic peripheral angiopathy without gangrene (2) Drug-seeking behavior: Comment: See HPI for additional details. Code(s): Z76.5 - Malingerer [conscious simulation] Plan This note is constructed using voice recognition software. While every effort has been made to ensure accuracy in cloth bleaching supervisor, still errors may have been included Sometimes, these errors may affect the content or meaning of the given sentence . Total time spent caring for the patient today was 30 minutes. This includes time spent before the visit reviewing the chart, time spent during the visit, and time spent after the visit on documentation Orders: Orders AMB Hemoglobin A1c Today E11.51 - Type 2 diabetes mellitus with diabetic peripheral angiopathy without gangrene Review Patient declined Colonoscopy: 01/01/24 Patient declined Colon Cancer Screen Lab: 01/01/24 Patient declined Diabetic Eye Exam: 01/01/24 Patient declined Pneumococcal Vaccine: 01/01/24 Coding Level of Care Code Est Pt Level 4 (15666) Diagnoses Type 2 diabetes mellitus with diabetic peripheral angiopathy without gangrene, without long-term current use of insulin E11.51 Diabetes mellitus complication detail: with peripheral angiopathy without gangrene Diabetes mellitus complication status: with circulatory complication Diabetes mellitus terminal supervisor insulin use: without care home use Drug-seeking behavior Z76.5
[2024-01-01 11:54] VITALS: BP 128/74; PULSE 90; RESP 14; TEMP 36.7; O2SAT 97; BMI 37.6
== END 2024-01-01 12:23 | disposition home or self-care (01) ==
PROVIDERS: PCP Nurse Practitioner Family; Visit Provider Nurse Practitioner Family
DX: E11.51 Type 2 diabetes mellitus with diabetic peripheral angiopathy without gangrene (principal); Z76.5 Malingerer [conscious simulation]
CPT/HCPCS: 83036; 99214

== ENCOUNTER 2024-03-22 16:38 | Outpatient (AMB) | payer OTHER, SELFPAY ==
--- NOTE | 2024-03-22 16:38 | A.OFFPC_ITS ---
Vital Signs 03/22/24 16:44 Height 5 ft 10 in Weight 267 lb 4 oz BMI 38.3 BP 130/60 Blood Pressure Location Lt brachial Position Sitting Respiration 16 Pulse 63 Pulse Source Pulse Oximeter Temp 97.9 F Temp Source Oral Pulse Oximetry (%) 99 Oxygen Delivery Method Room Air Intake Visit Reasons: STOMACH UPSET/LEG PAIN Intake Note: patient here c/o upset stomach and leg pain. Patent Paralegal Required: No Allergies morphine Allergy (Verified 03/22/24 16:53) Itchiness all over body Medication List - Last Reconciled 03/22/24 by Pawel Velez CNP blood sugar diagnostic (FreeStyle Lite Strips) DX: E11.9, test blood sugar 2 times a day, 90 days blood-glucose meter (FreeStyle Lite Meter kit) DX: E11.9, test blood sugar 2 times a day, duration 999 days celecoxib 200 mg PO DAILY cyclobenzaprine 10 mg PO BID PRN 3 months gabapentin 400 mg PO TID glipizide ER 10 mg PO ONCE lancets (FreeStyle Lancets) As directed lisinopril-hydrochlorothiazide 20-12.5 mg 1 tab PO DAILY metformin ER 500 mg PO BID 90 days metronidazole 0.75% 1 appl topical DAILY omeprazole 20 mg PO DAILY 3 months Tobacco use date assessed: 01/01/24 Fall risk assessment: 2 + Falls in past year Last assessed Fall Risk: 03/22/24 Dental Screening Dental Screen Date: 03/22/24 Did you have a dental visit in the last 12 months?: No Did you have a dental problem in the last 6 months where you did not have access to dental care?: No Was dental information given to patient?: No HPI HPI Comments History of Present Illness Details 63-year-old male presents with complaint s with complaint of stomach discomfort which he attributes to gas. He reports frequent belching and flatulence. His symptoms which has been ongoing for 3-4 months, has been refractory to Omeprazole. He denies dietary changes. He also reports sharp/ throbbing left lower leg from the meza to ankle, ongoing on/off for several years but has been constant lately. He has been taking Celebrex with some relief. He was also on Flexeril but notes he has not been on it for about 6 months. [facility] Medical History Osteoarthritis of knees, bilateral Osteoarthritis of shoulders, bilateral History of right shoulder fracture Surgical History Hx of shoulder surgery History of heart artery stent History of artificial eye lens History of right knee surgery Family History Father No problems noted. Mother Arthritis Brother Arthritis Social History Household Members: Friend(s) Housing: Apartment Alcohol intake: former Year quit: 2011 Patient Tobacco Use Status: Never used Tobacco e-Cigarette/Vaping Use: Never Used Second Hand Smoke Exposure: No service: No Current occupational status: disabled Current occupational exposures/hazards: No Cognitive needs: No Hearing needs: No Vision needs: No Questionnaire Thrive Questionnaire Date Thrive assessed: 09/30/23 CHRISTOPH-7 AMB Questionnaire CHRISTOPH-7 Date CHRISTOPH - 7 assessed: 09/30/23 Source: Developed by Drs. Juan Gonzales, Marcie Botello, Julio César Dunbar and colleagues, with an educational cristin from [email or web address]. Review of Systems Const Details: Const Denies chills, Denies fatigue, Denies fever(s), Denies headache(s) and Denies weakness ENT Denies dizziness and Denies headache(s) Card Denies chest pain, Denies lightheadedness, Denies dyspnea and Denies other (Palpitations) Resp Denies cough, Denies dyspnea, Denies wheezing and Denies other ( shortness of breath) GI Denies melena, Denies hematochezia, Denies change in bowel habits, Denies dyspepsia and Denies nausea, Denies vomiting Denies hematuria and Denies dysuria Musc Denies abnormal gait, Denies myalgias, Denies numbness and Denies tingling Skin/Breast Denies rash, Denies unusual bruising and Denies wounds Neuro Denies abnormal gait, Denies dizziness, Denies headache(s), Denies memory loss, Denies numbness, Denies Sensory deficit (Neuro), Denies tingling and Denies weakness Psych Denies anxiety, Denies depression, Denies memory loss Endo Denies cold intolerance, Denies fatigue, Denies heat intolerance, Denies polydipsia and Denies polyuria Aller/Immun Denies wheezing Physical exam (Primary Care) Vital Signs: Last Vital Signs Temp 97.9 F 03/22/24 16:44 Pulse 63 03/22/24 16:44 Resp 16 03/22/24 16:44 BP 130/60 03/22/24 16:44 Pulse Ox 99 03/22/24 16:44 Oxygen Delivery Method Room Air 03/22/24 16:44 BMI result Body Mass Index 38.3 Tobacco/Smoking Status: Tobacco use Status Tobacco use date assessed 01/01/24 03/22/24 16:40 Patient Tobacco Use Status Never used Tobacco 03/22/24 16:40 e-Cigarette/Vaping Use Never Used 03/22/24 16:40 Thrive Assessment: Date of Thrive Assessment Date Thrive assessed 09/30/23 03/22/24 16:40 Const Other: General: no acute distress and well developed Nutritional Appearance: well nourished Orientation/consciousness: patient oriented x3 HENMT Head: Yes normocephalic and Yes atraumatic Eyes General: appearance normal, both eyes and all related structures Pupils: Equal, round and reactive pupils present EOM: EOMs intact bilaterally Resp Effort & Inspection: normal respiratory effort Auscultation: clear to auscultation bilaterally Cardio Rate: regular rate Rhythm: regular rhythm Heart sounds: S1 normal heart sound present, S2 normal heart sound present, no gallops, no murmurs and no rubs GI Palpation (GI): No Abdominal aortic bruit present, Soft to palpation, nontender, No hepatosplenomegaly present and No Rebound tenderness present Auscultation: normal bowel sounds General: Yes no CVA tenderness Back/Spine/Pelvis Back: no CVA tenderness Cervical Spine: cervical ROM normal and No Cervical spine tenderness Thoracic/Lumbar Spine: thoraco-lumbar ROM normal, No pain with thoraco-lumbar ROM, No thoracic spinal tenderness and No lumbar spinal tenderness Extrem General: Yes normal to inspection, No edema and No calf tenderness Skin General: warm and dry. Normal skin color. Normal skin turgor Neuro General: patient oriented x3, gait normal and no focal neuro deficit Cranial nerves: Yes Equal, round and reactive pupils present Cognition (Neuro): normal cognition Gait exam (Neuro): Normal gait present Sensory Exam: No Sensory deficit (Neuro) Psych Appearance: grossly normal Affect: normal affect Attitude: cooperative Thought process: Normal thought process present Assessment and Plan Assessment & Plan (1) Gastrointestinal discomfort: Code(s): K30 - Functional dyspepsia Plan: Reports frequent belching and flatulence x 3-4 months Will trial simethicone. Advised to take as prescribed. Instructed on the risks, benefits, and potential adverse reactions of the medication Healthy diet encouraged Follow-up with PCP with new or worsening symptoms (2) Pain in left lower leg: Code(s): M79.662 - Pain in left lower leg Plan: Chronic pain to left lower leg No edema or overt trauma/injury Celecoxib refilled. Advised to take daily as prescribed Flexeril 10 mg twice daily as needed ordered Gabapentin refill as requested. Advised to take as prescribed Follow-up with PCP with worsening or new symptoms Medications: New simethicone (Gas Relief (simethicone)) 125 mg PO TID PRN 90 tabs 0RF abdominal distention Changed From cyclobenzaprine 10 mg PO BID 3 months PRN 180 tabs 2RF muscle spasm G89.29 - Other chronic pain, M47.816 - Spondylosis without myelopathy or radiculopathy, lumbar region To cyclobenzaprine 10 mg PO BID PRN 30 tabs 0RF muscle spasm G89.29 - Other chronic pain, M47.816 - Spondylosis without myelopathy or radiculopathy, lumbar region From gabapentin 400 mg PO TID 270 caps 0RF To gabapentin 400 mg PO TID 30 days 90 caps 0RF Refilled celecoxib with best meal 200 mg PO DAILY 30 caps 2RF Coding Level of Care Code Est Pt Level 4 (80493) Complex EM visit Add On G2211 Diagnoses Gastrointestinal discomfort K30 Pain in left lower leg M79.662
[2024-03-22 16:44] VITALS: BP 130/60; PULSE 63; RESP 16; TEMP 36.6; O2SAT 99; BMI 38.3
== END 2024-03-22 17:29 | disposition home or self-care (01) ==
PROVIDERS: PCP Nurse Practitioner Family; Visit Provider Nurse Practitioner Family
DX: K30 Functional dyspepsia (principal); M79.662 Pain in left lower leg
CPT/HCPCS: 99214; G2211